=== PATIENT | female | born 1985 | race African-American/Black ===

== ENCOUNTER → 2016-10-23 | Outpatient (CLI) | payer MEDICARE, OTHER ==
[~2016-10-23] MED LIST: ALDACTONE25 MG PO; ASPIR 8181 M1 PO; BACTRIM,SEPT1 TABLET PO; CATAPRES0.1 MG PO; CLONIDINE HCL0.1 MG PO; CLONIDINE HCL0.3 MG PO; DIFLUCAN150 MG PO; DIFLUCAN200 MG PO; DIOVAN80 MG PO; DUONEB 2.5-0.5 M3 ML AEROSOL; EFFEXOR XR75 MG PO; EFFEXOR75 MG PO; FLOVENT DISKUS1 DIS2 IH; GABAPENTIN300 MG PO; GRALISE300 MG PO; KEFLEX500 MG PO; KLONOPIN0.5 M1 PO; LEVAQUIN750 MG PO; LIPITOR10 MG PO; LODINE400 MG PO; METHADONE 22 MG/1 ML PO; MILLIPRED DP5 M1 PO; MONTELUKAST SOD10 MG PO; MOTRIN800 MG PO; NEURONTIN300 MG PO; NEURONTIN400 MG PO; NORCO 5/3251 TABLET PO; PROAIR HFA8.5 GM IH; PULMICORT FLEX90 MCG IH; QVAR 80 MCG IN7.3 GM IH; SINGULAIR10 MG PO; SPIRIVA RESPIMAT4 G1 IH; SUBOXONE 8 MG-1 EAC2 SL; TEGRETOL100 MG/5 M PO; TOPAMAX200 MG PO; VISTARIL50 MG PO; ZITHROMAX Z-PA250 MG PO; ZOCOR20 MG PO; ZOLPIDEM TARTRA10 MG PO
== END | disposition home or self-care (01) ==
LOC: CDC 12:50
DX: R94.31 Abnormal electrocardiogram [ECG] [EKG] (principal); L73.2 Hidradenitis suppurativa
CPT/HCPCS: 93000

== ENCOUNTER 2016-10-29 09:39 | Day surgery (SDC) | payer OTHER ==
[~2016-10-29] VITALS: Ht 172.7 cm; Wt 84.8 kg
[2016-10-29 10:17] VITALS: BP 129/87
[2016-10-29 10:45] LABS: AMPHETAMINES QUANT VALUE 0 NG/ML; BARBITUATES QUANT VALUE 0 NG/ML; BENZODIAZEPINES QUANT VALUE 0 NG/ML; BENZODIAZEPINES, URINE SCREEN Negative (200 ng/mL); PHENCYCLIDINE QUANT VALUE 0 NG/ML
[2016-10-29 13:34] VITALS: BP 131/86
[2016-10-29] MEDS ORDERED: PERCOCET 5/31 TABLET PO (14:43)
[2016-10-29 14:55] VITALS: BP 133/84
== END 2016-10-29 14:55 | disposition home or self-care (01) ==
LOC: SDC
PROVIDERS: Surgery
DX: L73.2 Hidradenitis suppurativa (principal); J45.909 Unspecified asthma, uncomplicated; I42.9 Cardiomyopathy, unspecified; F41.8 Other specified anxiety disorders; Z79.82 Long term (current) use of aspirin; Z79.899 Other long term (current) drug therapy; F17.210 Nicotine dependence, cigarettes, uncomplicated
CPT/HCPCS: 80156; 80306 90; 88304; J0690; J2250; J2405; J3010

== ENCOUNTER 2017-05-17 16:06 | Inpatient (IN) | payer OTHER ==
[~2017-05-17] VITALS: Ht 172.7 cm; Wt 85.8 kg
[~2017-05-17 16:06] MED LIST changes: -METHADONE 22 MG/1 ML PO; +METHADONE1 MG/1 ML PO; +PERCOCET 5/31 TABLET PO
[2017-05-17 16:53] LABS: ADD MIUA? NO; BILIRUBIN NEGATIVE; BLOOD NEGATIVE; COLOR YELLOW ((YELLOW)); GLUCOSE (STRIP) NEGATIVE; KETONES NEGATIVE; LEUKOCYTES NEGATIVE; NITRITE NEGATIVE; PROTEIN (STRIP) NEGATIVE; SPECIFIC GRAVITY 1.005 (1.000-1.030); UROBILINOGEN 0.2 MG/DL (0.2-1.0)
[2017-05-17 17:03] LABS: HEMATOCRIT 35.7 % (36.0-46.0); MCH 30.5 PG (29.0-34.0); MCV 87.1 FL (83-99); MEAN PLAT.VOLUME 9.4 uM^3 (9.5-12.4); PLATELET COUNT 292 K/uL (156-360); RBC DIS.WIDTH-SD 41.2 % (39-53); WHITE BLOOD COUNT 11.1 K/uL (4.1-10.2)
[2017-05-17 17:09] LABS: CHLORIDE 106 mEq/L (99-109); POTASSIUM 3.5 mEq/L (3.7-5.4); SODIUM 138 mEq/L (136-147)
[2017-05-17 17:12] LABS: GLUCOSE 104 mg/dL (70-99)
[2017-05-17 17:13] LABS: ANION GAP 9 MEQ/L (2-14); TOTAL BILIRUBIN 0.3 mg/dL (0.0-1.0)
[2017-05-17 17:14] LABS: SERUM ETHYL ALCOHOL < 10 mg/dL
[2017-05-17 17:15] LABS: ALKALINE PHOSPHATASE 58 IU/L (3-129); GFR ESTIMATE (CALCULATED) > 59 mL/min/
[2017-05-17 17:16] LABS: UREA NITROGEN (BUN) 6 mg/dL (9-23)
[2017-05-17 17:17] LABS: AMPHETAMINE NEGATIVE (500 ng/mL); BARBITURATES NEGATIVE (200 ng/mL); BENZODIAZEPINES NEGATIVE (150 ng/mL); COCAINE PRESUMPTIVE POSITIVE (150 ng/mL); INTERNAL CONTROLS VALID? YES; METHADONE NEGATIVE (200 ng/mL); METHAMPHETAMINE NEGATIVE (500 ng/mL); OPIATES (MORPHINE) PRESUMPTIVE POSITIVE (100 ng/mL); OXYCODONE NEGATIVE (100 ng/mL); PHENCYCLIDINE NEGATIVE (25 ng/mL); PROPOXYPHENE NEGATIVE (300 ng/mL); THC CANNABINOIDS NEGATIVE (50 ng/mL); TRICYCLIC ANTIDEPRESSANTS NEGATIVE (300 ng/mL)
[2017-05-17 17:18] LABS: ADD MEDTOX COMMENT Y
[2017-05-17 20:31] VITALS: BP 141/90
[2017-05-18 07:49] VITALS: BP 129/64
[2017-05-18] MEDS ORDERED: TEGRETOL100 MG/5 M PO (10:16)
[2017-05-18] MEDS ORDERED: CLONIDINE HCL0.1 MG PO (10:16)
[2017-05-18] MEDS ORDERED: EFFEXOR75 MG PO (10:16)
== END 2017-05-18 11:45 | disposition home or self-care (01) | DRG 885 ==
LOC: EME 16:06 → EDOF 18:10 → 1WEST 18:10 → ENRESERV 20:07 → 1WEST 20:15
PROVIDERS: Emergency Medicine
DX: F31.32 Bipolar disorder, current episode depressed, moderate (principal); R45.851 Suicidal ideations; F11.20 Opioid dependence, uncomplicated; F14.20 Cocaine dependence, uncomplicated; J43.9 Emphysema, unspecified; F12.20 Cannabis dependence, uncomplicated; Z68.28 Body mass index [BMI] 28.0-28.9, adult
CPT/HCPCS: 80053; 81003; 84999; 85027; 90686; 90839; 94760; 97150 GO; 99202; 99281; 99285; G0480